=== PATIENT | female | born 1935 ===

== ENCOUNTER 2020-09-03 06:00 | Outpatient (RCR) | payer MEDICARE, MEDICAID, SELFPAY | END 2020-09-25 23:59 | disposition home or self-care (01) | LOC: GR3 06:00 | PROVIDERS: Referring Provider Physical Medicine & Rehabilitation; Visit Provider Physical Medicine & Rehabilitation | DX: R53.81 Other malaise (principal); I48.91 Unspecified atrial fibrillation; I49.5 Sick sinus syndrome; Z95.0 Presence of cardiac pacemaker; C06.89 Malignant neoplasm of overlapping sites of other parts of mouth; X58.XXXA Exposure to other specified factors, initial encounter | CPT/HCPCS: 97110; 97116; 97161; 97530 ==